=== PATIENT | male | born 1995 | race Caucasian/White ===

== ENCOUNTER → 2019-09-26 17:31 | Outpatient (ROUT) | payer BC, SELFPAY ==
[2019-09-26 19:01] LABS: Urine N gonorrhoeae NOT DETECTED
[2019-09-26 19:03] LABS: Urine Chlamydia NOT DETECTED
== END ==
PROVIDERS: Visit Provider Physician Assistant
DX: Z11.3 Encounter for screening for infections with a predominantly sexual mode of transmission (principal)
CPT/HCPCS: 87491; 87591

== ENCOUNTER → 2019-09-27 14:29 | Outpatient (CLI) | payer BC, SELFPAY ==
[2019-09-27 19:52] LABS: HIV 1 & 2 Ab/Ag 4th Gen Combo NEGATIVE (NEGATIVE)
[2019-09-28 05:36] LABS: HBsAg Screen Negative (Negative); Hepatitis A Antibody IgM Negative (Negative); Hepatitis B Core Antibody IgM Negative (Negative); Hepatitis C Antibody 0.3 s/co ratio (0.0-0.9)
[2019-09-28 06:51] LABS: RPR Screen Non Reactive (Non Reactive)
== END ==
PROVIDERS: Referring Provider Physician Assistant; Visit Provider Physician Assistant
DX: Z11.3 Encounter for screening for infections with a predominantly sexual mode of transmission (principal)
CPT/HCPCS: 36415; 80074; 86592; 86695; 86696; 87389